=== PATIENT | female | born 1955 | race Asian ===

== ENCOUNTER 2016-09-25 09:20 | Day surgery (SDC) | payer OTHER ==
[~2016-09-25] VITALS: Ht 154.9 cm; Wt 61.2 kg
[2016-09-25] MEDS ORDERED: AMLODIPINE (10:21)
[2016-09-25] MEDS ORDERED: METFORMIN (10:21)
[2016-09-25] MEDS ORDERED: ASPIRIN (10:21)
[2016-09-25] MEDS ORDERED: ATENOLOL (10:21)
[2016-09-25 10:23] VITALS: Ht 154.9 cm; Wt 61.2 kg
[2016-09-25 10:35] VITALS: BP 121/69; PULSE 66; RESP 18
[2016-09-25] MEDS ORDERED: FENTAnyl 50 MCG/ML VIAL ONE (11:05)
[2016-09-25] MEDS ORDERED: MIDAZOLAM 1 MG/ML 2 ML INJ ONE ×2 (11:05)
--- NOTE | 2016-09-25 11:13 | GILP ---
DATE OF PROCEDURE: 09/25/2016 NAME OF PROCEDURES: Colonoscopy and biopsy. SURGEON: Rico Javier MD PREOPERATIVE DIAGNOSIS: Positive occult blood in stool. POSTOPERATIVE DIAGNOSES 1. Colonoscopy all the way to the cecum. 2. Poor prep, some solid stool in the cecum and right colon, making the exam suboptimal. 3. Diverticulosis of the colon. 4. Small sigmoid colon polyp was removed using the biopsy forceps. 5. Internal hemorrhoids. INDICATION FOR THE PROCEDURE: Ms. Hoa Edmond is a 61-year-old female patient who was noted to have positive occult blood in stool. She never had screening colonoscopy. The procedure and possible complications are well explained to the patient. She understood and cons ented to the procedure. DESCRIPTION OF PROCEDURE: Under the influence of fentanyl and Versed, the colonoscope was carefully introduced in the rectum and under direct vision, it was advanced all the way to the cecum. FINDINGS: The patient had a poor prep with solid stool in the cecum and right colon, making the exa m somewhat suboptimal. The patient was noted to have diverticulosis of the colon. She had a small sigmoid colon polyp and it was removed using the biopsy forceps. She had internal hemorrhoids. She tolerated the procedure very well and there was no complication from the procedure. At the end of the procedure, she was awake with stable vital signs and she was discharged home to the care of h er family. IMPRESSION: Please see postoperative diagnosis. PLAN: Because of the poor prep and suboptimal nature of the examination, would recommend repeat col onoscopy with better preparation in 1 year. Dictated By: RICO JAVIER MD GD/NTS Conf#: [id number] DID#: [id number] CC: RICO JAVIER MD;*EndCC*
[2016-09-25 11:32] VITALS: BP 113/75; PULSE 63; RESP 19
== END 2016-09-25 14:08 | disposition home or self-care (01) ==
LOC: GIL 09:20
PROVIDERS: ATTEND Internal Medicine Gastroenterology
DX: K92.1 Melena (principal); D12.5 Benign neoplasm of sigmoid colon; K57.90 Diverticulosis of intestine, part unspecified, without perforation or abscess without bleeding; K64.8 Other hemorrhoids; I10 Essential (primary) hypertension; E11.9 Type 2 diabetes mellitus without complications
CPT/HCPCS: 45380; 82962; 88305; J2250; J3010; Z7610